=== PATIENT | female | born 1995 | race Caucasian/White ===

== ENCOUNTER → 2016-04-06 | Outpatient (REF) | payer OTHER | LOC: M LAB REF 16:22 | PROVIDERS: ATTEND Physician Assistant | DX: N39.0 Urinary tract infection, site not specified (principal) ==

== ENCOUNTER → 2016-10-22 | Outpatient (REF) | payer OTHER | LOC: M LAB REF 13:40 | PROVIDERS: ATTEND Physician Assistant | DX: N39.0 Urinary tract infection, site not specified (principal) ==

== ENCOUNTER → 2017-07-22 | Outpatient (REF) | payer OTHER | LOC: M SFHCWAGY 14:32 | DX: Z12.4 Encounter for screening for malignant neoplasm of cervix (principal) ==

== ENCOUNTER → 2019-02-14 | Outpatient (REF) | payer OTHER ==
[2019-02-14 14:54] LABS: CHLAMYDIA DNA AMPLIFICATION NEGATIVE (NEGATIVE); GC DNA AMPLIFICATION NEGATIVE (NEGATIVE)
== END ==
LOC: M SFHCWAGY 12:36
PROVIDERS: ATTEND Nurse Practitioner Women's Health
DX: Z11.3 Encounter for screening for infections with a predominantly sexual mode of transmission (principal)

== ENCOUNTER → 2019-08-08 | Outpatient (REF) | payer OTHER | LOC: M LAB REF 16:15 | PROVIDERS: ATTEND Physician Assistant | DX: Z20.828 Contact with and (suspected) exposure to other viral communicable diseases (principal) ==

== ENCOUNTER → 2019-11-06 | Outpatient (REF) | payer OTHER ==
[2019-11-06 20:36] LABS: CHLAMYDIA DNA AMPLIFICATION NEGATIVE (NEGATIVE); GC DNA AMPLIFICATION NEGATIVE (NEGATIVE)
== END ==
LOC: M SFHCWAGY 17:29
PROVIDERS: ATTEND Nurse Practitioner Women's Health
DX: Z11.3 Encounter for screening for infections with a predominantly sexual mode of transmission (principal)

== ENCOUNTER → 2019-11-08 | Outpatient (CLI) | payer OTHER ==
--- NOTE | 2019-11-26 16:32 | REP ---
PELVIC ULTRASOUND DATE: 11/08/2019 at 07:58 a.m. CLINICAL: Irregular menstrual cycles. TECHNIQUE: Transabdominal vaginal ultrasound followed by transvaginal examination for better evaluation of the endometrium and adnexa with 3D images created. FINDINGS: The bladder is collapsed. The uterus has a bicornuate appearance and measures 7 cm in length and 4.7 cm in width. The right endometrial complex measures 3.1 mm in thickness and the left endometrial complex measures 2.3 mm thickness. No further uterine or endometrial abnormalities are identified. Bilateral ovaries are normal in appearance and vascularity without torsion. The left ovary measures 3.1 x 1.9 x 2.0 cm and demonstrates satisfactory blood flow. The right ovary measures 4.6 x 1.9 x 2.1 cm and demonstrates satisfactory blood flow. There is a small 1.6 x 0.8 x 1.1 cm right paraovarian cyst. No pelvic fluid or adnexal mass/lesion. 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 * Essentially normal bilateral ovaries with follicles and normal blood flow. * Small right simple paraovarian cyst noted. MTDD
== END ==
LOC: M WHC 07:45
PROVIDERS: ATTEND Nurse Practitioner Women's Health
DX: N92.6 Irregular menstruation, unspecified (principal)